=== PATIENT | female | born 1965 | race Caucasian/White ===

== ENCOUNTER → 2023-10-12 07:52 | Outpatient (REF) | payer OTHER, SELFPAY | LOC: HWRAD 07:52 | PROVIDERS: ATTENDING PHYSICIAN Internal Medicine Gastroenterology; FAMILY PHYSICIAN Family Medicine; REFERRING PHYSICIAN Obstetrics & Gynecology | DX: R10.9 Unspecified abdominal pain (principal); Z12.31 Encounter for screening mammogram for malignant neoplasm of breast; R10.2 Pelvic and perineal pain | CPT/HCPCS: 74177; 76830; 76856; 77063; 77067; Q9967 ==

== ENCOUNTER 2024-11-22 06:23 | Day surgery (SDC) | payer OTHER, SELFPAY | END 2024-11-22 12:50 | disposition home or self-care (01) | LOC: GI 06:23 | PROVIDERS: ATTENDING PHYSICIAN Internal Medicine Gastroenterology | DX: K20.0 Eosinophilic esophagitis (principal); K31.7 Polyp of stomach and duodenum; Z87.19 Personal history of other diseases of the digestive system | CPT/HCPCS: 43239; 43251; 88305 ==

== ENCOUNTER → 2024-11-22 08:41 | Outpatient (REF) | payer OTHER, SELFPAY | LOC: RAD 08:41 | PROVIDERS: ATTENDING PHYSICIAN Physician Assistant Medical | DX: R05.3 Chronic cough (principal) | CPT/HCPCS: 71046 ==